=== PATIENT | male | born 1990 | race Caucasian/White ===

== ENCOUNTER 2018-09-16 13:27 | Emergency (ER) | payer OTHER ==
[~2018-09-16] VITALS: Ht 180.3 cm; Wt 72.6 kg
[2018-09-16 13:35] VITALS: BP 135/86
[2018-09-16] MEDS ORDERED: BACTRIM DS TAB1 EACH PO (13:51)
== END 2018-09-16 13:55 | disposition home or self-care (01) ==
LOC: M.ERS 13:27
DX: L03.114 Cellulitis of left upper limb (principal)